=== PATIENT | male | born 1965 | race Caucasian/White ===

== ENCOUNTER 2017-04-30 04:56 | Inpatient (IN) | payer BC ==
[~2017-04-30 04:56] MED LIST: EAC PO; EZ NITE SLEEP25 MG PO; LISINOPRIL-HCT1 EAC2 PO; LISINOPRIL5 MG PO; OXYCODONE/APAP PO; PERCOCET 5-3251 EACH PO; RIZATRIPTAN10 M3 PO; TRAMADOL HCL50 M2 PO; TYLENOL EXTRA500 MG PO; ZYRTEC1010 PO; [UNRECOGNIZED DRUG - OTHER] PO
[2017-04-30 06:12] LABS: INR 0.9 INR (0.9-1.1); PROTHROMBIN TIME 9.9 SECONDS (9.0-13.6)
[2017-05-01 04:43] LABS: BASO % 0.1 % (0-2); EOS % 0.6 % (0-7); EOSINOPHIL ABSOLUTE COUNT 0.1 tho/cmm (0.0-0.7); HCT-HEMATOCRIT 34.3 % (36.0-53.5); HGB-HEMOGLOBIN 11.4 gm/dl (13.5-17.0); IMMATURE GRANULOCYTES ABSOLUTE 0.04 tho/cmm (0-0.03); IMMATURE GRANULOCYTES PERCENT 0.3 % (0-0.3); LYMPH % 19.1 % (20-45); LYMPH ABSOLUTE COUNT 2.3 tho/cmm (0.8-4.5); MCH (MEAN CORPUSCULAR HGB) 27.7 pg (28.0-32.0); MCHC MEAN CORPUSCULAR HGB CONC 33.2 % (32.0-36.0); MCV (MEAN CELL VOLUME) 83.5 fl (82.0-96.0); MEAN PLATELET VOLUME 11.4 cmc (9.4-12.4); MONO % 9.6 % (0-12); MONOCYTE ABSOLUTE COUNT 1.1 tho/cmm (0.0-1.2); NEUTROPHIL ABSOLUTE COUNT 8.3 tho/cmm (1.6-8.0); NEUTROPHIL-AUTOMATED 8.3 tho/cmm (1.6-8.0); NEUTROPHILS % 70.3 % (40-80); PLATELET COUNT 216 tho/cmm (150-450); RED BLOOD COUNT 4.11 mil/cmm (4.40-5.70); WHITE BLOOD COUNT 11.9 tho/cmm (4.0-10.0)
[2017-05-02] MEDS ORDERED: ROXICODONE5 M2 PO (11:25)
[2017-05-02] MEDS ORDERED: ULTRAM50 M1 (11:31)
[2017-05-02] MEDS ORDERED: ASPIRIN325 M3 (11:33)
[2017-05-02] MEDS ORDERED: MOBIC7.5 M2 PO (11:34)
== END 2017-05-02 13:45 | DRG 470 ==
LOC: SHSB 04:56 → ORE 08:02 → PACU 10:23 → 5EA 11:15
PROVIDERS: Physician Assistant; ADMIT Orthopaedic Surgery
PROC: 0SRD0J9 Replacement of Left Knee Joint with Synthetic Substitute, Cemented, Open Approach (ICD-10-PCS; principal; 2017-04-30)
DX: M17.12 Unilateral primary osteoarthritis, left knee (principal); Z68.41 Body mass index [BMI] 40.0-44.9, adult; I10 Essential (primary) hypertension; E66.9 Obesity, unspecified; Z79.899 Other long term (current) drug therapy
CPT/HCPCS: C1713; C1776; J0171; J0690; J1885; J2270; J2795